=== PATIENT | female | born 1995 | race Caucasian/White ===

== ENCOUNTER 2021-11-23 20:57 | Emergency (ER) | payer MEDICAID ==
[~2021-11-23] VITALS: Ht 154.9 cm; Wt 73.7 kg
[2021-11-23 21:11] VITALS: BP 122/74
[2021-11-23] MEDS ORDERED: HYDR-2761 PO ×2 (21:24→21:37)
--- NOTE | 2021-11-23 21:24 | PHYS DOC ---
Past Medical History Past Surgical History: Tonsillectomy, Tubal ligation General Adult EDM: Chief Complaint: DENTAL PROBLEM HPI: HPI: Patient is a 26 year old female presenting to the ED today complaining of moderate pain to the right lower gum, symptoms began 3 weeks ago from a dental infection. She was seen by the dentist yesterday and was started on penicillin. She states she has tried ibuprofen and Tylenol with no relief. She denies any fever or trismus. Review of Systems: Review of Systems: Constitutional: Denies fever or chills. [] HENT: Reports dental infection and pain Musculoskeletal: Denies back pain or joint pain. [] Integument: Denies rash. [] Neurologic: Denies headache, focal weakness or sensory changes. [] Psychiatric: Denies depression or anxiety. [] Heart Score: C/O Chest Pain: N/A Risk Factors: Risk Factors: DM, Current or recent (<one month) smoker, HTN, HLP, family history of CAD, obesity. Risk Scores: Score 0 - 3: 2.5% MACE over next 6 weeks - Discharge Home Score 4 - 6: 20.3% MACE over next 6 weeks - Admit for Clinical Observation Score 7 - 10: 72.7% MACE over next 6 weeks - Early Invasive Strategies Current Medications: Current Medications Medications (Trade) Dose Ordered Sig/[facility] Start Time Stop Time Status Last Admin Dose Admin Acetaminophen/ Hydrocodone Bitart (Lortab 5/325) 2 tab 1X ONCE 11/23/21 21:30 11/23/21 21:31 UNV Physical Exam: PE: Constitutional: Well developed, well nourished, no acute distress, non-toxic appearance. [] HENT: Normocephalic, atraumatic, bilateral external ears normal, oropharynx moist, no oral exudates, nose normal. [] Approximately tooth #30 is broken, there is some decay going on the cavity, trace gum erythema, no dental abscess Skin: Warm, dry, no erythema, no rash. [] Back: No tenderness, no CVA tenderness. [] Extremities: No tenderness, no cyanosis, no clubbing, ROM intact, no edema. [] Neurologic: Alert and oriented X 3, normal motor function, normal sensory function, no focal deficits noted. [] Psychologic: Affect normal, judgement normal, mood normal. [] Current Patient Data: Vital Signs: Vital Signs Date Time Temp Pulse Resp B/P (MAP) Pulse Ox O2 Delivery O2 Flow Rate FiO2 11/23/21 21:11 111 18 122/74 (90) 98 Room Air EKG: EKG: [] Radiology/Procedures: Radiology/Procedures: [] Course & Med Decision Making: Course & Med Decision Making Pertinent Labs and Imaging studies reviewed. (See chart for details) This a 26-year-old female patient presenting to the ED today with a dental pain and infection. Started on penicillin yesterday. Encourage patient to continue taking this antibiotics. She is only the day 2 of treatment she needs to give the medicine some time to work. Recommended following up with her dentist in the next seven days. Magda Disclaimer: Magda Disclaimer: This electronic medical record was generated, in whole or in part, using a voice recognition dictation system. Departure Departure Impression: Primary Impression: Dentalgia Additional Impression: Dental infection Disposition: HOME / SELF CARE / HOMELESS Condition: STABLE Patient Instructions: Dental Pain, [id number] Additional Instructions: You were seen for dental pain, please continue taking your antibiotics for infection. Follow-up with your dentist in the next 7 days Scripts Hydrocodone Bit/Acetaminophen (HYDROCODONE-APAP 5-325 ) 1 Tab Tablet 1 TAB PO PRN Q6HRS PRN for PAIN, #8 TAB 0 Refills Prov: AILYN GUNTER APRN 11/23/21 AILYN GUNTER APRN Nov 23, 2021 21:24
[2021-11-23] MEDS ORDERED: HYDROcodone/APAP 5/325MG 1 TAB TABLET PO ONE (22:00)
== END 2021-11-23 21:50 | disposition home or self-care (01) ==
LOC: ER 20:57
DX: K04.7 Periapical abscess without sinus (principal)
CPT/HCPCS: 99283